=== PATIENT | female | born 1990 | race Asian ===

== ENCOUNTER 2017-11-09 22:00 | Emergency (ER) | payer OTHER ==
[~2017-11-09] VITALS: Ht 149.9 cm; Wt 65.3 kg
[2017-11-10] MEDS ORDERED: CIPRO500 MG PO (04:44)
[2017-11-10] MEDS ORDERED: KETO10TA2 PO (04:44)
[2017-11-10] MEDS ORDERED: URIN D.S. TABL1 EACH PO (04:44)
== END 2017-11-10 04:39 | disposition home or self-care (01) ==
LOC: ER 22:00
DX: N39.0 Urinary tract infection, site not specified (principal); R10.2 Pelvic and perineal pain